=== PATIENT | female | born 1980 ===

== ENCOUNTER 2018-12-23 19:29 | Emergency (ER) | payer OTHER ==
[2018-12-23 19:54] VITALS: RESP 18; O2SAT 99
[2018-12-23] MEDS ORDERED: Sodium Chloride 0.9% 1,000 ML IV STA (20:12)
--- NOTE | 2018-12-23 20:38 | ED PDOC ---
Syncope/Near Syncope/Dizziness Time Seen by Provider: 12/23/18 19:57 Chief Complaint (Nursing): Dizziness/Lightheaded Chief Complaint (Provider): Dizziness/Lightheaded History Per: Patient History/Exam Limitations: no limitations Onset/Duration Of Symptoms: Days (x1) Current Symptoms Are (Timing): Still Present Additional Complaint(s): 38 y/o female with a PMHx of HTN and DM presents to the ED for evaluation of dizziness, onset one day ago. Patient describes symptom as lightheadedness rather than vertigo. Patient states lightheadedness worsens with exertion. In addition, patient reports of having bilateral elbow and knee joint pain over the last month as well as itching in her ears. Otherwise, patient denies headache, nausea, diarrhea, polyuria, polydipsia and polyphasia. Patient reports of running out of medications for HTN and DM three days ago. Of note, patient states [place] been [place] the [place] three [place] and obtained all medications from the [place]. Patient reports of having no plans to return. PMD: no provider Past Medical History Reviewed: Historical Data, Nursing Documentation, Vital Signs Vital Signs: Last Vital Signs Temp 98.3 F 12/23/18 19:51 Pulse 70 12/23/18 19:51 Resp 18 12/23/18 19:51 BP 124/79 12/23/18 19:51 Pulse Ox 99 12/23/18 19:51 - Medical History PMH: Diabetes, HTN - Surgical History Surgical History: - Family History Family History: States: No Known Family Hx - Social History Current smoker - smoking cessation education provided: No Alcohol: None - Home Medications Home Medications: Ambulatory Orders Medication Instructions Recorded RX: Ibuprofen [Motrin Tab] 600 mg PO Q8 PRN #30 tab 12/23/18 - Allergies Allergies/Adverse Reactions: Allergies Allergy/AdvReac Type Severity Reaction Status Date / Time No Known Allergies Allergy Verified 12/23/18 19:51 Review of Systems ROS Statement: Except As Marked, All Systems Reviewed And Found Negative (as per HPI) ENT: Positive for: Other (itching in ears) Gastrointestinal: Negative for: Nausea, Vomiting Musculoskeletal: Positive for: Arm Pain (bilateral elbow), Leg Pain (bilateral knee) Neurological: Positive for: Dizziness (lightheadedness > vertigo). Negative for: Headache Physical Exam - Reviewed Nursing Documentation Reviewed: Yes Vital Signs Reviewed: Yes - Physical Exam Appears: Positive for: No Acute Distress Head Exam: Positive for: ATRAUMATIC, NORMOCEPHALIC Skin: Positive for: Warm, Dry Eye Exam: Positive for: EOMI, PERRL ENT: Negative for: Pharyngeal Erythema, Tonsillar Exudate Neck: Positive for: Painless ROM, Supple Cardiovascular/Chest: Positive for: Regular Rate, Rhythm. Negative for: Murmur Respiratory: Positive for: Normal Breath Sounds. Negative for: Wheezing Gastrointestinal/Abdominal: Positive for: Soft. Negative for: Tenderness Back: Positive for: Normal Inspection. Negative for: Decreased ROM Extremity: Positive for: Normal ROM (Full ROM of the bilateral arms and legs. No laxity in the bilateral knees.). Negative for: Swelling (no swelling of joints) Lymphatic: Negative for: Adenopathy Neurologic/Psych: Positive for: Alert. Negative for: Motor/Sensory Deficits - Laboratory Results Result Diagrams: 12/23/18 20:47 12/23/18 20:47 - ECG O2 Sat by Pulse Oximetry: 99 (RA) Pulse Ox Interpretation: Normal Medical Decision Making Medical Decision Making: Time: 2010 Impression: Dizziness Differentials include but not limited dehydration, electrolyte abnormality, anemia, viral illness and Plan: -- CMP -- Magnesium -- Phosphorus -- ED Urine -- ED Urine Dipstick -- CBC with Differentials -- Glucose, POC -- Sodium Chloride IV 1000 mls/hr -- Toradol 15 mg IVP -- IV Insertion -- Glucose, Blood, POC -- Dickinson Dickinson positive, otherwise no clinically significant abnormalities DW pt findings. She reports that about 2-3 weeks ago she had sore throat and fever briefly which resolved. Discussed at length need for rest and increase fluids and avoid contact sports. No meds for diabetes precribed at this time since currently glucose levels are controlled and she report decreased appetite and episode of possible hypoglycemia yesterday. Mandatory clinic followup. Scribe Attestation: Documented by Darion Begum, acting as a scribe for Cinthia Walker MD. Provider Scribe Attestation: All medical record entries made by the Scribe were at my direction and personally dictated by me. I have reviewed the chart and agree that the record accurately reflects my personal performance of the history, physical exam, medical decision making, and the department course for this patient. I have also personally directed, reviewed, and agree with the discharge instructions and disposition. Disposition - Clinical Impression Clinical Impression: Infectious mononucleosis Counseled Patient/Family Regarding: Studies Performed, Diagnosis, Need For Followup - Disposition Referrals: [facility] [Outside] - 12/26/18 Disposition: Routine/Home Disposition Time: 21:58 Condition: STABLE Additional Instructions: SUKHDEV MUCHOS LIQUIDOS Y DESCANSE RANDA IBUPROFEN PARA DOLOR VISITA A LA [facility] PROXIMA [facility]ANA A CHEQAR DE NUEVO Prescriptions: RX: Ibuprofen [Motrin Tab] 600 mg PO Q8 PRN #30 tab PRN Reason: Pain, Moderate (4-7) Instructions: Mononucleosis (DC) Print Language: MACEDONIAN
[2018-12-23 20:50] LABS: BASO # 0.1 K/uL (0.0-0.2); EOS # 0.2 K/uL (0.0-0.7); EOS % 1.6 % (0.0-4.0); HEMOGLOBIN 13.4 g/dL (12.0-16.0); LYMPH # 4.2 K/uL (1.0-4.3); LYMPH % 38.2 % (20.0-40.0); MEAN CELL VOLUME 89.6 fl (81.0-99.0); MEAN CORPUSCULAR HEMOGLOBIN 30.3 pg (27.0-31.0); MEAN CORPUSCULAR HGB CONC 33.8 g/dL (33.0-37.0); MONO # 0.6 K/uL (0.0-0.8); MONO % 5.7 % (0.0-10.0); NEUT # 5.8 K/uL (1.8-7.0); NEUT % 53.5 % (50.0-75.0); RBC 4.43 Mil/uL (3.80-5.20); RED CELL DISTRIBUTION WIDTH 12.8 % (11.5-14.5); WHITE BLOOD COUNT 10.9 K/uL (4.8-10.8)
[2018-12-23 21:18] LABS: ALB/GLOB RATIO 1.2 (1.0-2.1); ALBUMIN 3.9 g/dL (3.5-5.0); ALT/SGPT 29 U/L (9-52); AST/SGOT 28 U/L (14-36); BLOOD UREA NITROGEN 17 mg/dl (7-17); CALCIUM 9.2 mg/dL (8.4-10.2); GFR NON-AFRICAN AMERICAN > 60
[2018-12-23 22:25] VITALS: BP 99/59; PULSE 75; TEMP 98.1
== END 2018-12-23 22:27 | disposition home or self-care (01) ==
LOC: H.ER 19:29
DX: L29.9 Pruritus, unspecified (principal); B27.90 Infectious mononucleosis, unspecified without complication; E11.9 Type 2 diabetes mellitus without complications; I10 Essential (primary) hypertension
CPT/HCPCS: 80053; 81025; 82948; 83735; 84100; 85025; 86308; 96361; 96374; 99285; J1885; J7030